=== PATIENT | male | born 1995 | race Caucasian/White ===

== ENCOUNTER 2016-05-18 18:00 | Emergency (ER) | payer OTHER ==
[~2016-05-18] VITALS: Ht 190.5 cm; Wt 86.4 kg
[~2016-05-18 18:00] MED LIST: ANTIBIOTIC FOR ACNE; NO HOME MEDICATIONS; [UNRECOGNIZED DRUG - OTHER]
[2016-05-18 18:04] VITALS: TEMP 97.7
[2016-05-18] MEDS ORDERED: MULTI VITAMINS1 TAB PO (18:06)
[2016-05-18] MEDS ORDERED: CLARAVIS40 MG PO (18:20)
[2016-05-18 19:02] LABS: BASO # 0.1 (0.0-0.2); BASO % 0.4 % (0.0-2.0); EOS # 0.1 (0.0-0.7); EOS % 0.4 % (0-4.0); GRAN # 10.2 (1.4-6.5); GRAN % 74.5 % (42.2-75.2); HEMATOCRIT 43.8 % (36.0-47.0); HEMOGLOBIN 15.5 g/dl (12.5-16.1); LYMPH % 14.7 % (20.0-51.0); MEAN CELL VOLUME 89 fl (80.0-95.0); MEAN CORPUSCULAR HEMOGLOBIN 32 pg (26.0-32.0); MEAN CORPUSCULAR HGB CONC 35 g/dl (33.0-37.0); MEAN PLATELET VOLUME 10.8 fl (7.4-10.4); MONO # 1.3 (0.1-0.6); MONO % 9.6 % (1.7-9.3); PLATELET COUNT 192 K/mm3 (130-400); REDCELL DISTRIBUTION WIDTH-CV 11.9 % (11.5-14.5); WHITE BLOOD COUNT 13.7 K/mm3 (4.8-10.8)
[2016-05-18 19:16] LABS: ADJUSTED CALCIUM 9.6 mg/dL (8.4-10.2); ALBUMIN 4.5 gm/dL (3.5-5.0); BILIRUBIN,TOTAL 1.2 mg/dL (0.0-1.0); CREATININE, serum 1.15 mg/dL (0.66-1.25); TOTAL PROTEIN 8.3 gm/dL (6.4-8.2)
[2016-05-18 19:35] VITALS: BP 126/54; PULSE 84
[2016-05-18] MEDS ORDERED: PREDNISONE20 MG PO (20:13)
== END 2016-05-18 20:20 | disposition home or self-care (01) ==
LOC: COL.ER 18:00
PROVIDERS: Nurse Practitioner
DX: J03.90 Acute tonsillitis, unspecified (principal)
CPT/HCPCS: J1885; J2930; J7030

== ENCOUNTER 2019-06-19 20:24 | Emergency (ER) | payer BC ==
[~2019-06-19] VITALS: Ht 190.5 cm; Wt 86.4 kg
[~2019-06-19 20:24] MED LIST changes: +CLARAVIS40 MG PO; +MULTI VITAMINS1 TAB PO; +PREDNISONE20 MG PO
[2019-06-19 20:28] VITALS: TEMP 98.4
[2019-06-19 21:15] LABS: BASO % 0.6 % (0.0-2.0); EOS # 0.1 (0.0-0.7); EOS % 1.6 % (0-4.0); GRAN % 56.8 % (42.2-75.2); HEMATOCRIT 39.4 % (42.0-52.0); HEMOGLOBIN 13.9 g/dl (13.5-18.0); LYMPH # 2.3 (1.2-3.4); MEAN CELL VOLUME 90 fl (80.0-100.0); MEAN CORPUSCULAR HEMOGLOBIN 32 pg (27.0-31.0); MEAN CORPUSCULAR HGB CONC 35 g/dl (33.0-37.0); MEAN PLATELET VOLUME 11.7 fl (7.4-10.4); MONO # 0.5 (0.1-0.6); MONO % 7.7 % (1.7-9.3); PLATELET COUNT 165 K/mm3 (130-400); RED BLOOD COUNT 4.38 M/mm3 (4.20-5.60); REDCELL DISTRIBUTION WIDTH-CV 12.2 % (11.5-14.5)
[2019-06-19 21:35] LABS: ANION GAP 11 mmol/L (7-16); BLOOD UREA NITROGEN 13 mg/dL (9-20); CALCIUM 9.6 mg/dL (8.4-10.2); CARBON DIOXIDE 28 mmol/L (22-30); CHLORIDE 103 mmol/L (98-107); CREATININE, serum 0.84 (0.66-1.25); GLUCOSE 99 mg/dL (74-106); POTASSIUM 3.9 mmol/L (3.4-5.0); SODIUM 141 mmol/L (137-145)
[2019-06-19 22:04] LABS: TROPONIN-I < 0.012 ng/mL (0.000-0.035)
[2019-06-19] MEDS ORDERED: ANTIVERT 25MG25 MG PO (22:52)
[2019-06-19 23:00] VITALS: BP 113/67; PULSE 71
== END 2019-06-19 23:00 | disposition home or self-care (01) ==
LOC: COL.ER 20:24
PROVIDERS: Physician Assistant
DX: R55 Syncope and collapse (principal); R42 Dizziness and giddiness
CPT/HCPCS: J7030

== ENCOUNTER 2020-09-13 05:36 | Emergency (ER) | payer BC ==
[~2020-09-13] VITALS: Ht 190.5 cm; Wt 86.4 kg
[~2020-09-13 05:36] MED LIST changes: +ANTIVERT 25MG25 MG PO
[2020-09-13 05:41] VITALS: TEMP 98
[2020-09-13 06:23] LABS: BASO % 0.5 % (0.0-2.0); EOS # 0.1 (0.0-0.7); EOS % 1.7 % (0-4.0); GRAN # 3.1 (1.4-6.5); GRAN % 53.1 % (42.2-75.2); HEMATOCRIT 44.5 % (42.0-52.0); HEMOGLOBIN 15.6 g/dl (13.5-18.0); LYMPH % 34.3 % (20.0-51.0); MEAN CELL VOLUME 89 fl (80.0-100.0); MEAN CORPUSCULAR HEMOGLOBIN 31 pg (27.0-31.0); MEAN CORPUSCULAR HGB CONC 35 g/dl (33.0-37.0); MEAN PLATELET VOLUME 11.4 fl (7.4-10.4); MONO # 0.6 (0.1-0.6); MONO % 10.2 % (1.7-9.3); PLATELET COUNT 167 K/mm3 (130-400); REDCELL DISTRIBUTION WIDTH-CV 12.4 % (11.5-14.5)
[2020-09-13 06:46] LABS: ALBUMIN 4.6 gm/dL (3.5-5.0); BILIRUBIN,TOTAL 0.8 mg/dL (0.0-1.0); CALCIUM 9.7 mg/dL (8.4-10.2); CREATININE, serum 0.94 (0.66-1.25); TOTAL PROTEIN 7.6 gm/dL (6.4-8.2)
[2020-09-13 06:58] LABS: COLLECTION METHOD CLEAN CATCH
[2020-09-13 07:14] LABS: PH 7 (5-8); SQUAMOUS EPITHELIAL None Seen /hpf; URINE APPEARANCE Clear; URINE BACTERIA None Seen /hpf; URINE BILIRUBIN Negative (NEGATIVE); URINE BLOOD Negative (NEGATIVE); URINE COLOR Colorless; URINE GLUCOSE Negative (NEGATIVE); URINE KETONE Negative (NEGATIVE); URINE LEUKOCYTE ESTERASE Negative (NEGATIVE); URINE NITRATE Negative (NEGATIVE); URINE PROTEIN(semi-quant) Negative (NEGATIVE); URINE RBC None Seen /hpf; URINE UROBILINOGEN Negative (NEGATIVE)
[2020-09-13] MEDS ORDERED: ZOFRAN 4MG T4 MG/TAB PO (08:18)
[2020-09-13 08:37] VITALS: BP 129/77; PULSE 56
== END 2020-09-13 08:39 | disposition home or self-care (01) ==
LOC: COL.ER 05:36
PROVIDERS: Emergency Medicine
DX: R42 Dizziness and giddiness (principal); R55 Syncope and collapse; R11.0 Nausea
CPT/HCPCS: J1100; J2405; J7030